=== PATIENT | male | born 1960 | race Caucasian/White ===

== ENCOUNTER 2019-10-13 14:44 | Inpatient (IN) ==
[2019-10-13] MEDS ORDERED: IOPAMIDOL 150 ML BOTTLE IV ONE (14:45)
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
[2019-10-13] MEDS ORDERED: PIPERACILLIN SODIUM/TAZOBACTAM 3.375 GM in DEXTROSE 5% IN WATER 50 ML IV SCH ×2 (16:15→18:30)
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
[2019-10-13 19:21] LABS: Basophils # (Auto) 0.05 K/mcL (0.00-0.30); Basophils % (Auto) 0.8 % (0.0-2.0); Eosinophils # (Auto) 0.27 K/mcL (0.00-0.70); Eosinophils % (Auto) 4.5 % (0.0-7.0); Granulocytes % (Auto) 61.1 % (38.0-78.0); Hematocrit 35.7 % (40.1-51.0); Hemoglobin 11.6 g/dL (13.7-17.5); Lymphocytes # (Auto) 1.24 K/mcL (1.50-4.80); Lymphocytes % (Auto) 20.5 % (15.5-49.0); Mean Cell Volume 90.8 fL (80.0-100.0); Mean Corpuscular HGB Conc 32.5 g/dL (31.0-36.0); Mean Platelet Volume 10.5 fL (7.4-10.4); Monocytes # (Auto) 0.79 K/mcL (0.10-0.90); Monocytes % (Auto) 13.1 % (1.0-12.0); Platelet Count 361 K/mcL (140-440); RBC 3.93 M/mcL (4.63-6.08); Red Cell Distribution Width 13.1 % (11.5-14.5); WBC 6.1 K/mcL (4.50-11.00)
[2019-10-13] MEDS ORDERED: POTASSIUM CHLORIDE 20 MEQ PACKET PO PRN (19:22)
[2019-10-13] MEDS ORDERED: MAGNESIUM SULFATE 2 GM/50 ML BAG IV PRN (19:22)
[2019-10-13] MEDS ORDERED: BISACODYL 10 MG SUPP.RECT PR PRN (19:22)
[2019-10-13] MEDS ORDERED: ACETAMINOPHEN 325 MG TABLET PO PRN (19:22)
[2019-10-13] MEDS ORDERED: POLYETHYLENE GLYCOL 3350 17 GM PACKET PO PRN (19:22)
[2019-10-13] MEDS ORDERED: ONDANSETRON 4 MG ODT TABLET SL PRN (19:22)
[2019-10-13] MEDS ORDERED: ACETAMINOPHEN 650 MG/65 ML BOTTLE IV PRN (19:22)
[2019-10-13] MEDS ORDERED: guaiFENesin/CODEINE 10 ML UDC PO PRN (19:22)
[2019-10-13] MEDS ORDERED: ONDANSETRON 4 MG/2 ML VIAL IV PRN (19:22)
[2019-10-13 19:39] LABS: C-Reactive Protein 7.3 mg/dl (0.0-0.8)
[2019-10-13 20:26] LABS: POC Blood Urea Nitrogen 14 mg/dl (6-20); POC CO2 26 mmol/L (22-30); POC Calcium, Ionized 1.26 mmol/L (1.16-1.32); POC Chloride 100 mmol/L (96-108); POC Creatinine 0.9 mg/dl (0.7-1.2); POC Glucose, Random 110 mg/dL (70-105); POC Potassium 4.3 mmol/L (3.3-5.1); POC Sodium 135 mmol/L (133-145)
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
[2019-10-13] MEDS ORDERED: MELATONIN 3 MG TABLET PO PRN (21:00)
[2019-10-13] MEDS: HYDROmorphone 0.5 MG/0.5 ML SYRINGE IV PRN (21:20)
[2019-10-13] MEDS: HEPARIN 5,000 UNIT/ML VIAL SQ SCH (21:21)
[2019-10-13] MEDS: 0.9 % SODIUM CHLORIDE 10 ML SYRINGE IV SCH (21:21)
[2019-10-13] MEDS: SENNOSIDES/DOCUSATE SODIUM 1 TAB TABLET PO SCH ×2 (21:21→21:30)
[2019-10-13] MEDS: DOCUSATE SODIUM 100 MG CAPSULE PO SCH ×2 (21:21→21:30)
[2019-10-13 23:29] LABS: Appearance,Urine CLEAR; Bilirubin,Urine NEG (NEG); Color,Urine YELLOW; Culture Indicated,Urine NO; Glucose,Urine (UA) NEGATIVE (NEG); Ketones,Urine NEG (NEG); Leukocyte Esterase,Urine NEG /uL (NEG); Nitrate,Urine NEG (NEG); Protein,Urine NEG (NEG); Specific Gravity,Urine 1.025 (1.000-1.035); Urine Blood NEG mg/dL (<0.03)
[2019-10-13] MEDS: PIPERACILLIN SODIUM/TAZOBACTAM 3.375 GM in DEXTROSE 5% IN WATER 50 ML IV SCH (23:59)
[2019-10-14] MEDS: HYDROmorphone 0.5 MG/0.5 ML SYRINGE IV PRN ×3 (03:10→16:07)
[2019-10-14] MEDS: 0.9 % SODIUM CHLORIDE 10 ML SYRINGE IV SCH ×3 (03:10→12:24)
[2019-10-14] MEDS: PIPERACILLIN SODIUM/TAZOBACTAM 3.375 GM in DEXTROSE 5% IN WATER 50 ML IV SCH ×4 (05:50→23:49)
[2019-10-14 06:46] LABS: Hematocrit 31.8 % (40.1-51.0); Hemoglobin 10.3 g/dL (13.7-17.5); Mean Cell Volume 90.9 fL (80.0-100.0); Mean Corpuscular HGB Conc 32.4 g/dL (31.0-36.0); Mean Platelet Volume 10.4 fL (7.4-10.4); Platelet Count 327 K/mcL (140-440); Red Cell Distribution Width 13.1 % (11.5-14.5); WBC 6.1 K/mcL (4.50-11.00)
[2019-10-14 07:03] LABS: ALT/SGPT 13 U/l (0-40); AST/SGOT 12 U/l (0-37); Albumin 3.2 gm/dL (3.2-5.2); Albumin/Globulin Ratio 1.1 (1.0-2.3); Alkaline Phosphatase 102 U/L (39-117); Bilirubin,Direct < 0.2 mg/dL (0.0-0.3); Bilirubin,Total 0.4 mg/dL (0.0-1.0); Blood Urea Nitrogen 12 mg/dl (6-20); Calcium 9.3 mg/dl (8.6-10.4); Carbon Dioxide 25 mmol/L (22-30); Chloride 100 mmol/L (96-108); Globulin 2.8 gm/dL (2.2-3.7); Glomerular Filtration Rate 97; Glucose 85 mg/dL (70-105); Lactate Dehydrogenase 201 U/L (94-250); Triglycerides 62 mg/dl (<150); Uric Acid 3.4 mg/dL (2.5-8.0)
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
[2019-10-14 08:38] LABS: Eosinophils % (Manual) 3 % (0-7); Lymphocytes % 17 % (15-49); Monocytes % (Manual) 11 % (1-12); Platelet Estimate NORMAL (NORMAL); RBC Morphology NORMAL (NORMAL); Segmented Neutrophils % 69 % (38-78)
[2019-10-14] MEDS ORDERED: LISINOPRIL 10 MG TABLET PO SCH (09:00)
[2019-10-14] MEDS ORDERED: MULTIVIT,THER IRON,CA,FA & MIN 1 TABLET PO SCH (09:00)
[2019-10-14] MEDS ORDERED: SCOPOLAMINE 1 PATCH PATCH TOPICAL PRN ×2 (12:00→15:39)
[2019-10-14] MEDS ORDERED: IPRATROPIUM/ALBUTEROL 3 ML AMPUL.NEB NEB PRN ×3 (12:00→15:39)
[2019-10-14] MEDS ORDERED: NALOXONE HCL 0.4 MG/ML VIAL IV PRN (13:34)
[2019-10-14] MEDS ORDERED: PROMETHAZINE 25 MG/ML VIAL IV PRN (13:34)
[2019-10-14] MEDS ORDERED: HYDROmorphone 0.5 MG/0.5 ML SYRINGE IV PRN (13:34)
[2019-10-14] MEDS ORDERED: MEPERIDINE 25 MG/ML SYRINGE IV PRN (13:34)
[2019-10-14] MEDS ORDERED: BENZOCAINE/MENTHOL 1 LOZENGE PO PRN (13:34)
[2019-10-14] MEDS ORDERED: ONDANSETRON 4 MG/2 ML VIAL IV PRN ×2 (13:34→15:39)
[2019-10-14] MEDS ORDERED: diphenhydrAMINE 50 MG/ML VIAL IV PRN (13:34)
[2019-10-14] MEDS ORDERED: LACTATED RINGERS 250 ML IV PRN (13:34)
[2019-10-14] MEDS ORDERED: ACETAMINOPHEN 1,000 MG/100 ML BOTTLE IV ONE (13:34)
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
--- NOTE | 2019-10-14 13:42 | XRay Report ---
CLINICAL INFORMATION: Pre operative COMPARISON: None. FINDINGS: Heart is mildly enlarged. Mediastinum and pulmonary vessels are normal. Lungs are clear. No effusions. Bones and soft tissues normal. IMPRESSION: Mild cardiomegaly - no acute disease Interpreted and Authenticated by: Austen Owen 10/14/19
[2019-10-14] MEDS ORDERED: LACTATED RINGERS 1,000 ML IV SCH (13:45)
[2019-10-14] MEDS ORDERED: PROPOFOL 200 MG/20 ML VIAL IV ONE (13:50)
[2019-10-14] MEDS ORDERED: LIDOCAINE HCL/PF 100 MG/5 ML SYRINGE IV ONE (13:50)
[2019-10-14] MEDS ORDERED: KETAMINE 100 MG/ML ML IV ONE (13:50)
[2019-10-14] MEDS ORDERED: ONDANSETRON 4 MG/2 ML VIAL IV ONE (13:50)
[2019-10-14] MEDS ORDERED: DEXAMETHASONE 10 MG/ML VIAL IV ONE (13:50)
--- NOTE | 2019-10-14 14:48 | Brief Operative Note ---
Date of procedure: 10/14/19 Pre-op diagnosis: Infected hematoma RIGHT thigh with abscess Post-op diagnosis: same Procedure: Excision debridement, Pulse lavage irrigation, cultures / biopsies and OPEN packing. Wound Dimensions: PRE op 6 x 4 x 3.5 CM POST op 9 x 7 x 4 CM Underminin Cm @ 9 O'clock 8 Cm @ 12 O'clock 3 Cm @ 3 O'clock 4 Cm @ 6 O'clock EBL 50 ml Grafts/Implants: No Anesthesia: GETA Findings: Infected hematoma, Fat necrosis, Bruised saphenous veins Wound base with tears in fascia and exposed muscle Complications: none Surgeon: Braulio Simpson Estimated blood loss (cc): 50 Specimens Removed/Pathology: other Condition: stable Disposition: other (Procedure well tolerated. Patient NEEDS staged proceedure/s Change of packing, possible VAC and skin grafting later.)
[2019-10-14] MEDS ORDERED: hydrALAZINE 20 MG/ML VIAL IV ONE (14:53)
[2019-10-14] MEDS: fentaNYL 100 MCG/2 ML VIAL IV PRN ×4 (14:55→15:12)
[2019-10-14] MEDS ORDERED: hydrALAZINE 20 MG/ML VIAL ONE (15:03)
[2019-10-14] MEDS ORDERED: GENTAMICIN SULFATE 800 MG/20 ML VIAL IR ONE (15:10)
[2019-10-14] MEDS ORDERED: ACETAMINOPHEN 325 MG TABLET PO PRN (15:39)
[2019-10-14] MEDS ORDERED: MAGNESIUM SULFATE 2 GM/50 ML BAG IV PRN (15:39)
[2019-10-14] MEDS ORDERED: ACETAMINOPHEN 650 MG/65 ML BOTTLE IV PRN (15:39)
[2019-10-14] MEDS ORDERED: BISACODYL 10 MG SUPP.RECT PR PRN (15:39)
[2019-10-14] MEDS ORDERED: ONDANSETRON 4 MG ODT TABLET SL PRN (15:39)
[2019-10-14] MEDS ORDERED: guaiFENesin/CODEINE 10 ML UDC PO PRN (15:39)
[2019-10-14] MEDS ORDERED: POLYETHYLENE GLYCOL 3350 17 GM PACKET PO PRN (15:39)
[2019-10-14] MEDS ORDERED: POTASSIUM CHLORIDE 20 MEQ PACKET PO PRN (15:39)
[2019-10-14] MEDS ORDERED: MEPERIDINE 25 MG/ML SYRINGE IV SCH (15:50)
[2019-10-14] MEDS: HEPARIN 5,000 UNIT/ML VIAL SQ SCH ×2 (16:41→21:01)
[2019-10-14] MEDS: DOCUSATE SODIUM 100 MG CAPSULE PO SCH (16:41)
[2019-10-14] MEDS: oxyCODONE/APAP 5/325MG TABLET PO PRN ×2 (17:09→21:01)
[2019-10-14] MEDS ORDERED: MELATONIN 3 MG TABLET PO PRN (21:00)
[2019-10-14] MEDS: SENNOSIDES/DOCUSATE SODIUM 1 TAB TABLET PO SCH (21:01)
[2019-10-15] MEDS: HYDROmorphone 0.5 MG/0.5 ML SYRINGE IV PRN ×3 (00:22→22:48)
[2019-10-15] MEDS: oxyCODONE/APAP 5/325MG TABLET PO PRN ×3 (03:49→20:06)
[2019-10-15] MEDS: PIPERACILLIN SODIUM/TAZOBACTAM 3.375 GM in DEXTROSE 5% IN WATER 50 ML IV SCH ×4 (05:39→23:39)
[2019-10-15 06:13] LABS: Hematocrit 33.3 % (40.1-51.0); Hemoglobin 10.7 g/dL (13.7-17.5); Mean Cell Volume 90.7 fL (80.0-100.0); Mean Corpuscular HGB Conc 32.1 g/dL (31.0-36.0); Mean Platelet Volume 10.3 fL (7.4-10.4); Platelet Count 357 K/mcL (140-440); RBC 3.67 M/mcL (4.63-6.08); Red Cell Distribution Width 12.9 % (11.5-14.5); WBC 8.9 K/mcL (4.50-11.00)
[2019-10-15 06:45] LABS: ALT/SGPT 22 U/l (0-40); AST/SGOT 18 U/l (0-37); Albumin 3.1 gm/dL (3.2-5.2); Alkaline Phosphatase 100 U/L (39-117); Bilirubin,Direct < 0.2 mg/dL (0.0-0.3); Bilirubin,Total 0.2 mg/dL (0.0-1.0); Blood Urea Nitrogen 12 mg/dl (6-20); Calcium 9.2 mg/dl (8.6-10.4); Carbon Dioxide 26 mmol/L (22-30); Chloride 102 mmol/L (96-108); Globulin 3.1 gm/dL (2.2-3.7); Glomerular Filtration Rate 93; Glucose 98 mg/dL (70-105); Lactate Dehydrogenase 208 U/L (94-250); Phosphorous 2.7 mg/dL (2.7-4.5); Triglycerides 62 mg/dl (<150); Uric Acid 2.8 mg/dL (2.5-8.0)
[2019-10-15 08:05] LABS: Lymphocytes % 15 % (15-49); Monocytes % (Manual) 7 % (1-12); Platelet Estimate NORMAL (NORMAL); RBC Morphology NORMAL (NORMAL); Segmented Neutrophils % 78 % (38-78)
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
[2019-10-15] MEDS ORDERED: LISINOPRIL 10 MG TABLET PO SCH (09:00)
[2019-10-15] MEDS: MULTIVIT,THER IRON,CA,FA & MIN 1 TABLET PO SCH (09:15)
[2019-10-15] MEDS: LISINOPRIL 20 MG TABLET PO SCH (09:15)
[2019-10-15] MEDS: HEPARIN 5,000 UNIT/ML VIAL SQ SCH ×2 (09:16→20:06)
[2019-10-15] MEDS: SENNOSIDES/DOCUSATE SODIUM 1 TAB TABLET PO SCH (20:06)
[2019-10-15] MEDS ORDERED: hydrALAZINE 20 MG/ML VIAL IV PRN (22:43)
[2019-10-15] MEDS ORDERED: hydrALAZINE 20 MG/ML VIAL ONE (22:49)
[2019-10-16] MEDS: oxyCODONE/APAP 5/325MG TABLET PO PRN ×6 (02:12→23:28)
[2019-10-16] MEDS: PIPERACILLIN SODIUM/TAZOBACTAM 3.375 GM in DEXTROSE 5% IN WATER 50 ML IV SCH (05:53)
[2019-10-16 06:34] LABS: Hematocrit 34.9 % (40.1-51.0); Hemoglobin 11.1 g/dL (13.7-17.5); Mean Cell Volume 91.8 fL (80.0-100.0); Mean Corpuscular HGB Conc 31.8 g/dL (31.0-36.0); Platelet Count 361 K/mcL (140-440); Red Cell Distribution Width 13.2 % (11.5-14.5); WBC 8.4 K/mcL (4.50-11.00)
[2019-10-16 07:06] LABS: ALT/SGPT 26 U/l (0-40); AST/SGOT 23 U/l (0-37); Albumin 3.2 gm/dL (3.2-5.2); Albumin/Globulin Ratio 1.1 (1.0-2.3); Alkaline Phosphatase 99 U/L (39-117); Bilirubin,Direct < 0.2 mg/dL (0.0-0.3); Bilirubin,Total 0.2 mg/dL (0.0-1.0); Blood Urea Nitrogen 13 mg/dl (6-20); Calcium 9.3 mg/dl (8.6-10.4); Carbon Dioxide 26 mmol/L (22-30); Chloride 101 mmol/L (96-108); Globulin 2.9 gm/dL (2.2-3.7); Glomerular Filtration Rate 93; Glucose 80 mg/dL (70-105); Lactate Dehydrogenase 218 U/L (94-250); Phosphorous 2.8 mg/dL (2.7-4.5); Triglycerides 106 mg/dl (<150); Uric Acid 2.9 mg/dL (2.5-8.0)
[2019-10-16 08:05] LABS: Eosinophils % (Manual) 3 % (0-7); Lymphocytes % 22 % (15-49); Monocytes % (Manual) 10 % (1-12); Platelet Estimate NORMAL (NORMAL); RBC Morphology NORMAL (NORMAL); Segmented Neutrophils % 65 % (38-78)
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
[2019-10-16] MEDS ORDERED: amLODIPine 5 MG TABLET PO ONE (08:36)
[2019-10-16] MEDS: LISINOPRIL 20 MG TABLET PO SCH (08:49)
[2019-10-16] MEDS: HEPARIN 5,000 UNIT/ML VIAL SQ SCH ×2 (08:50→20:07)
[2019-10-16] MEDS: MULTIVIT,THER IRON,CA,FA & MIN 1 TABLET PO SCH (08:50)
[2019-10-16] MEDS: HYDROmorphone 0.5 MG/0.5 ML SYRINGE IV PRN (08:51)
[2019-10-16] MEDS: amLODIPine 5 MG TABLET PO SCH (09:11)
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
[2019-10-16] MEDS: CEPHALEXIN 500 MG CAPSULE PO SCH ×3 (13:23→20:08)
--- NOTE | 2019-10-16 13:28 | General Surgery Progress Note ---
Subjective Patient reports: feels better, pain is less, tolerating a regular diet (Feeling better. Surgical site pain and oozing throu the outer layer of dressing. ), bowel movement, afebrile Narrative: Note initiated : 10/16/19 at 1:24 pm Service Date, if different from initiated Date: [] Patient: Jerome Marquez 58 y/o M admitted on 10/13/19 for Right thigh wound. Chief Complaint: [] Objective Temp Pulse Resp BP Pulse Ox 98.5 F 77 20 154/99 97 10/16/19 11:28 10/16/19 11:28 10/16/19 11:28 10/16/19 11:28 10/16/19 11:28 - Additional Data Intake & Output - Last 24 hours: Intake & Output 10/14/19 10/15/19 10/16/19 10/17/19 05:59 05:59 05:59 05:59 Intake Total 790 3110 2250 1230 Output Total 825 3225 3350 1999 Balance -35 -115 -1100 -770 Weight 264 lb 4.8 oz 257 lb 11.2 oz 260 lb 3.2 oz 260 lb 3.2 oz 10/16/19 13:25 POD # 2 AVSS No changes MADY. Ambulating to bathroom. Still has surgical site pain. Blood staining of dressing . Eating well. LESLIE. Wound c/s Staph aureus. ID consult appreciated. Dressing changed. Packing D/Cd. Started wound VAC. - Labs 10/16/19 05:20 10/16/19 05:20 Diabetes panel 10/16/19 Range/Units 05:20 Sodium 138 (133-145) mmol/L Potassium 4.0 (3.3-5.1) mmol/L Chloride 101 (96-108) mmol/L Carbon Dioxide 26 (22-30) mmol/L BUN 13 (6-20) mg/dl Creatinine 0.9 (0.7-1.2) mg/dl Glucose 80 (70-105) mg/dL Calcium 9.3 (8.6-10.4) mg/dl AST 23 (0-37) U/l ALT 26 (0-40) U/l Alkaline Phosphatase 99 (39-117) U/L Total Protein 6.1 (5.9-8.4) gm/dL Albumin 3.2 (3.2-5.2) gm/dL Triglycerides 106 (<150) mg/dl Calcium panel 10/16/19 Range/Units 05:20 Calcium 9.3 (8.6-10.4) mg/dl Phosphorus 2.8 (2.7-4.5) mg/dL Albumin 3.2 (3.2-5.2) gm/dL Pituitary panel 10/16/19 Range/Units 05:20 Sodium 138 (133-145) mmol/L Potassium 4.0 (3.3-5.1) mmol/L Chloride 101 (96-108) mmol/L Carbon Dioxide 26 (22-30) mmol/L BUN 13 (6-20) mg/dl Creatinine 0.9 (0.7-1.2) mg/dl Glucose 80 (70-105) mg/dL Calcium 9.3 (8.6-10.4) mg/dl Adrenal panel 10/16/19 Range/Units 05:20 Sodium 138 (133-145) mmol/L Potassium 4.0 (3.3-5.1) mmol/L Chloride 101 (96-108) mmol/L Carbon Dioxide 26 (22-30) mmol/L BUN 13 (6-20) mg/dl Creatinine 0.9 (0.7-1.2) mg/dl Glucose 80 (70-105) mg/dL Calcium 9.3 (8.6-10.4) mg/dl Total Bilirubin 0.2 (0.0-1.0) mg/dL AST 23 (0-37) U/l ALT 26 (0-40) U/l Alkaline Phosphatase 99 (39-117) U/L Total Protein 6.1 (5.9-8.4) gm/dL Albumin 3.2 (3.2-5.2) gm/dL Assessment and Plan (1) Traumatic hematoma of right thigh Status: Acute Current Visit: Yes (2) Abscess of right thigh Status: Acute Current Visit: Yes (3) Hypertension, essential Status: Chronic Current Visit: No (4) Obesity (BMI 30.0-34.9) Status: Chronic Current Visit: No (5) Cigarette smoker Status: Chronic Current Visit: No - Narrative A/P Narrative: Assessment: Patient seen with Daniela MONTOYA, Wound nurse. He WILL need close monitoring, Wound VAC FURTHER SURGICAL INTERVENTION. IE.debridement and / or split thick skin graft Plan: Reassess progress. For now continue wound VAC. Physical Therapy consult. CASE management to assist with further treatment, NEEDS: Further wound management and surgery. This will be evaluated as condition evolves. Post Skin Graft, ??? HBOT . - Time Spent With Patient Total time spent is greater than 50% in coordination of care (as documented) at patient's floor/unit and/or counseling patient: 25 - 35 minutes
[2019-10-16] MEDS: SENNOSIDES/DOCUSATE SODIUM 1 TAB TABLET PO SCH (20:08)
[2019-10-17] MEDS: oxyCODONE/APAP 5/325MG TABLET PO PRN ×5 (04:08→20:58)
[2019-10-17 06:32] LABS: Hemoglobin 11.7 g/dL (13.7-17.5); Mean Cell Volume 90.9 fL (80.0-100.0); Mean Corpuscular HGB Conc 31.6 g/dL (31.0-36.0); Mean Platelet Volume 9.9 fL (7.4-10.4); Platelet Count 365 K/mcL (140-440); RBC 4.07 M/mcL (4.63-6.08); Red Cell Distribution Width 13.3 % (11.5-14.5); WBC 6.7 K/mcL (4.50-11.00)
[2019-10-17 07:00] LABS: ALT/SGPT 33 U/l (0-40); AST/SGOT 28 U/l (0-37); Albumin 3.4 gm/dL (3.2-5.2); Albumin/Globulin Ratio 1.2 (1.0-2.3); Alkaline Phosphatase 95 U/L (39-117); Bilirubin,Direct < 0.2 mg/dL (0.0-0.3); Bilirubin,Total 0.2 mg/dL (0.0-1.0); Blood Urea Nitrogen 14 mg/dl (6-20); Calcium 9.4 mg/dl (8.6-10.4); Carbon Dioxide 25 mmol/L (22-30); Chloride 102 mmol/L (96-108); Globulin 2.8 gm/dL (2.2-3.7); Glomerular Filtration Rate 97; Glucose 84 mg/dL (70-105); Lactate Dehydrogenase 180 U/L (94-250); Phosphorous 3.5 mg/dL (2.7-4.5); Triglycerides 126 mg/dl (<150); Uric Acid 3.4 mg/dL (2.5-8.0)
[2019-10-17 07:41] LABS: Eosinophils % (Manual) 7 % (0-7); Lymphocytes % 31 % (15-49); Monocytes % (Manual) 6 % (1-12); Platelet Estimate NORMAL (NORMAL); RBC Morphology NORMAL (NORMAL); Segmented Neutrophils % 56 % (38-78)
[2019-10-17] MEDS: CEPHALEXIN 500 MG CAPSULE PO SCH ×4 (08:37→20:58)
[2019-10-17] MEDS: amLODIPine 5 MG TABLET PO SCH (08:38)
[2019-10-17] MEDS: LISINOPRIL 20 MG TABLET PO SCH (08:38)
[2019-10-17] MEDS: MULTIVIT,THER IRON,CA,FA & MIN 1 TABLET PO SCH (08:39)
[2019-10-17] MEDS: HEPARIN 5,000 UNIT/ML VIAL SQ SCH ×2 (08:39→20:57)
--- NOTE | 2019-10-17 09:08 | General Surgery Progress Note ---
Subjective Patient reports: no new complaints, feels better, tolerating a regular diet, bowel movement, other (Ambulating ad azar. Serous drainge in cannister VAC. ) Narrative: Note initiated : 10/17/19 at 8:47 am Service Date, if different from initiated Date: [] Patient: Jerome Marquez 58 y/o M admitted on 10/13/19 for Right thigh wound. Chief Complaint: [] Objective Temp Pulse Resp BP Pulse Ox 97.6 F 62 18 169/94 98 10/17/19 07:39 10/17/19 07:39 10/17/19 07:39 10/17/19 07:39 10/17/19 07:39 AVSS No changes RIGHT thigh Wound VAC Functioning well. Labs reviewed. I D Note appreciated. - Additional Data Intake & Output - Last 24 hours: Intake & Output 10/15/19 10/16/19 10/17/19 10/18/19 05:59 05:59 05:59 05:59 Intake Total 3110 2250 3710 480 Output Total 3225 3350 5625 300 Balance -115 -1100 -1915 180 Weight 257 lb 11.2 oz 260 lb 3.2 oz 253 lb 8 oz - Labs 10/17/19 05:18 10/17/19 05:18 Diabetes panel 10/17/19 Range/Units 05:18 Sodium 137 (133-145) mmol/L Potassium 4.2 (3.3-5.1) mmol/L Chloride 102 (96-108) mmol/L Carbon Dioxide 25 (22-30) mmol/L BUN 14 (6-20) mg/dl Creatinine 0.8 (0.7-1.2) mg/dl Glucose 84 (70-105) mg/dL Calcium 9.4 (8.6-10.4) mg/dl AST 28 (0-37) U/l ALT 33 (0-40) U/l Alkaline Phosphatase 95 (39-117) U/L Total Protein 6.2 (5.9-8.4) gm/dL Albumin 3.4 (3.2-5.2) gm/dL Triglycerides 126 (<150) mg/dl Calcium panel 10/17/19 Range/Units 05:18 Calcium 9.4 (8.6-10.4) mg/dl Phosphorus 3.5 (2.7-4.5) mg/dL Albumin 3.4 (3.2-5.2) gm/dL Pituitary panel 10/17/19 Range/Units 05:18 Sodium 137 (133-145) mmol/L Potassium 4.2 (3.3-5.1) mmol/L Chloride 102 (96-108) mmol/L Carbon Dioxide 25 (22-30) mmol/L BUN 14 (6-20) mg/dl Creatinine 0.8 (0.7-1.2) mg/dl Glucose 84 (70-105) mg/dL Calcium 9.4 (8.6-10.4) mg/dl Adrenal panel 10/17/19 Range/Units 05:18 Sodium 137 (133-145) mmol/L Potassium 4.2 (3.3-5.1) mmol/L Chloride 102 (96-108) mmol/L Carbon Dioxide 25 (22-30) mmol/L BUN 14 (6-20) mg/dl Creatinine 0.8 (0.7-1.2) mg/dl Glucose 84 (70-105) mg/dL Calcium 9.4 (8.6-10.4) mg/dl Total Bilirubin 0.2 (0.0-1.0) mg/dL AST 28 (0-37) U/l ALT 33 (0-40) U/l Alkaline Phosphatase 95 (39-117) U/L Total Protein 6.2 (5.9-8.4) gm/dL Albumin 3.4 (3.2-5.2) gm/dL Assessment and Plan (1) Traumatic hematoma of right thigh Status: Acute Current Visit: Yes (2) Abscess of right thigh Status: Acute Current Visit: Yes (3) Hypertension, essential Status: Chronic Current Visit: No (4) Obesity (BMI 30.0-34.9) Status: Chronic Current Visit: No (5) Cigarette smoker Status: Chronic Current Visit: No - Narrative A/P Narrative: Assessment: Satisfactory post operative progress . POD # 3. Patient is speaking with his son in [facility]. He would like to move to [facility] for further treatment. Plan: Await developments. Continue present treatment. - Time Spent With Patient Total time spent is greater than 50% in coordination of care (as documented) at patient's floor/unit and/or counseling patient: 15 - 24 minutes
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
--- NOTE | 2019-10-17 15:18 | Surgical Pathology Report ---
HISTOLOGY SPECIMEN MICROSCOPIC DIAGNOSIS SKIN AND SOFT TISSUE, RIGHT THIGH WOUND ABSCESS, BIOPSY: -- DERMAL AND SUBCUTANEOUS ABSCESS WITH FAT NECROSIS, GRANULATION TISSUE, FIBROSIS, HEMORRHAGE AND EPIDERMAL ULCERATION/NECROSIS. -- NO NEOPLASIA OR MALIGNANCY IDENTIFIED. (ACP:sln) MICROSCOPIC DESCRIPTION Sections of the right thigh demonstrate a broad region of epidermal necrosis/ulceration with dense mixed inflammation, extensive granulation tissue, irregular fibrosis and fat necrosis. Irregular fibrosis and fibroplasia are also present. No polarizable foreign material is identified. Scattered multinucleated giant cells are present. No acid-fast bacilli or fungal organisms are identified with AFB or GMS stains (adequate technical controls). Immunohistochemical stains are performed on block A3, including pancytokeration plus, S100, Melan A, CD68 and CD34 (adequate technical controls). The pancytokeratin plus highlights adnexal structures at the dermis. The CD34 is positive within granulation tissue endothelial cells. The S100 highlights rare peripheral nerves. The Melan A is positive within rare epidermal melanocytes. The CD68 is positive within numerous histiocytes associated with fat necrosis. There is no evidence of neoplasia or malignancy. (ACP:sln) Some of the tests reported here may not have been cleared or approved by the U.S. Food and Drug Administration (FDA). However, the FDA has determined that such clearance or approval is not necessary. Pursuant to the requirements of CLIA, this laboratory has established and verified the accuracy and precision of all tests, and additional information about these tests is available upon request. All technical controls are adequate. CLINICAL HISTORY Nonhealing right thigh wound. GROSS DESCRIPTION Received in formalin labeled right thigh wound abscess, are two fragments of yellow-valdez to brown lobulated soft tissue with an aggregate weight of 45 grams and measuring 6.5 x 5 x 2.3 cm and 7.4 x 5 x 1.3 cm. The fragments are not oriented. Skin is identified on the smaller fragment. The skin surface is white-valdez with ulcerated foci. The ulcerated foci measures 2.3 x 1.2 cm. Warehouse [employer] sections submitted: A1-A2 - sections of larger fragment; A3 - sections of smaller fragment to include skin. (EBD:sln) Electronically Signed by: Hemal Colon M.D.
[2019-10-17] MEDS: SENNOSIDES/DOCUSATE SODIUM 1 TAB TABLET PO SCH (20:58)
[2019-10-18] MEDS: oxyCODONE/APAP 5/325MG TABLET PO PRN ×3 (00:54→09:59)
[2019-10-18 06:22] LABS: Hematocrit 37.2 % (40.1-51.0); Mean Cell Volume 89.6 fL (80.0-100.0); Mean Corpuscular HGB Conc 32.3 g/dL (31.0-36.0); Mean Platelet Volume 9.8 fL (7.4-10.4); Platelet Count 397 K/mcL (140-440); RBC 4.15 M/mcL (4.63-6.08); Red Cell Distribution Width 13.2 % (11.5-14.5); WBC 7.2 K/mcL (4.50-11.00)
[2019-10-18 06:42] LABS: ALT/SGPT 90 U/l (0-40); AST/SGOT 78 U/l (0-37); Albumin 3.4 gm/dL (3.2-5.2); Albumin/Globulin Ratio 1.1 (1.0-2.3); Alkaline Phosphatase 99 U/L (39-117); Bilirubin,Direct < 0.2 mg/dL (0.0-0.3); Bilirubin,Total 0.2 mg/dL (0.0-1.0); Blood Urea Nitrogen 11 mg/dl (6-20); Calcium 9.5 mg/dl (8.6-10.4); Carbon Dioxide 26 mmol/L (22-30); Chloride 100 mmol/L (96-108); Glomerular Filtration Rate 97; Glucose 80 mg/dL (70-105); Lactate Dehydrogenase 213 U/L (94-250); Phosphorous 3.3 mg/dL (2.7-4.5); Triglycerides 144 mg/dl (<150); Uric Acid 4.1 mg/dL (2.5-8.0)
[2019-10-18 08:14] LABS: Eosinophils % (Manual) 6 % (0-7); Lymphocytes % 32 % (15-49); Monocytes % (Manual) 13 % (1-12); Platelet Estimate NORMAL (NORMAL); RBC Morphology NORMAL (NORMAL); Segmented Neutrophils % 49 % (38-78)
[2019-10-18] MEDS: amLODIPine 5 MG TABLET PO SCH (08:53)
[2019-10-18] MEDS: LISINOPRIL 20 MG TABLET PO SCH (08:53)
[2019-10-18] MEDS: CEPHALEXIN 500 MG CAPSULE PO SCH (08:53)
[2019-10-18] MEDS: MULTIVIT,THER IRON,CA,FA & MIN 1 TABLET PO SCH (08:53)
[2019-10-18] MEDS: HEPARIN 5,000 UNIT/ML VIAL SQ SCH (08:53)
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
--- NOTE | 2019-10-18 10:27 | Infectious Disease Prog Note ---
Subjective Patient information: Note initiated : 10/18/19 at 10:24 am Service Date, if different from initiated Date: [] Patient: Jerome Marquez 58 y/o M admitted on 10/13/19 for Right thigh wound. Chief Complaint: [] Interval history: Pt feels better. Denied any symptoms except for pain in the right thigh wound. Is getting ready for discharge and transfer to [facility] wound care per Dr Simpson. Objective Objective Narrative: ao x 3, in nad no thrush in oral cavity right thigh: has an approximate 8 x 5 cm ulcer at site of surgical debridement, base containing red granulation tissue with no yellow or white exudate, tender. Redness and swelling around the wound have been decreasing in size. single about 2cm x 3-4 mm blister seen adjacent to distal edge of the wound, without any surrounding erythema. no distal foot discoloration or edema - Vital Signs Vital signs: Vital Signs Temp Pulse Resp BP Pulse Ox 10/18/19 07:59 36.7 C 62 20 143/92 98 10/18/19 03:37 36.3 C 61 16 149/95 97 10/17/19 22:31 36.4 C 61 16 165/99 98 10/17/19 18:44 36.5 C 69 16 154/96 97 10/17/19 16:00 36.4 C 78 18 152/95 98 10/17/19 12:00 36.9 C 70 18 140/88 97 Intake and Output 10/17/19 10/18/19 10/18/19 21:59 05:59 13:59 Intake Total 480 1050 Output Total 1450 800 Balance -970 250 Intake: Oral 480 1050 Output: Void Amount 1450 800 Other: Urine Appearance Clear Clear Urine Color Bright Yellow Bright Yellow Urine Odor Normal Weight 114.759 kg Intake & Output: Intake & Output 10/17/19 10/18/19 10/18/19 21:59 05:59 13:59 Intake Total 480 1050 Output Total 1450 800 Balance -970 250 Weight 114.759 kg Intake: Oral 480 1050 Output: Void Amount 1450 800 Other: Urine Appearance Clear Clear Urine Color Bright Yellow Bright Yellow Urine Odor Normal - Lab 10/18/19 05:04 10/18/19 05:04 Most recent lab results Calcium 9.5 mg/dl (8.6-10.4) 10/18/19 05:04 Phosphorus 3.3 mg/dL (2.7-4.5) 10/18/19 05:04 Magnesium 2.3 mg/dL (1.6-2.5) 10/18/19 05:04 Microbiology 10/14/19 15:03 Thigh - Right Gram Stain - Final 10/14/19 15:03 Thigh - Right Anaerobic Culture - Preliminary 10/14/19 15:02 Thigh - Right Gram Stain - Final 10/14/19 15:02 Thigh - Right Anaerobic Culture - Preliminary 10/14/19 15:02 Thigh - Right Gram Stain - Final 10/14/19 15:02 Thigh - Right Wound Culture - Final Staphylococcus aureus 10/14/19 15:02 Thigh - Right Gram Stain - Final 10/14/19 15:02 Thigh - Right Wound Culture - Final Staphylococcus aureus 10/13/19 21:45 Nose MRSA Screen - Final 10/14/19 00:25 Nose MRSA (PCR) - Final Medications Active Medications: Acetaminophen (Tylenol) 650 mg PO Q4-6HP PRN; Protocol PRN Reason: Per Pain Protocol/Fever > 101 Last Admin: 10/15/19 15:55 Dose: 650 mg Documented by: BORIS Amlodipine Besylate (Norvasc) 5 mg PO DAILY [facility] Last Admin: 10/18/19 08:53 Dose: 5 mg Documented by: Admin: 10/17/19 08:38 Dose: 5 mg Documented by: Admin: 10/16/19 09:11 Dose: 5 mg Documented by: KEELEY Bisacodyl (Dulcolax) 10 mg VA Q2-3DAYS PRN PRN Reason: Constipation Cephalexin HCl (Keflex) 500 mg PO QID [facility]; Protocol Last Admin: 10/18/19 08:53 Dose: 500 mg Documented by: Admin: 10/17/19 20:58 Dose: 500 mg Documented by: Admin: 10/17/19 17:02 Dose: 500 mg Documented by: Admin: 10/17/19 12:26 Dose: 500 mg Documented by: Admin: 10/17/19 08:37 Dose: 500 mg Documented by: Admin: 10/16/19 20:08 Dose: 500 mg Documented by: Admin: 10/16/19 17:19 Dose: 500 mg Documented by: Admin: 10/16/19 13:23 Dose: 500 mg Documented by: KEELEY Guaifenesin/Codeine Phosphate (Robitussin Ac) 10 ml PO Q4HP PRN PRN Reason: Cough Heparin Sodium (Porcine) (Heparin) 5,000 unit SQ Q12 [facility] Last Admin: 10/18/19 08:53 Dose: 5,000 unit Documented by: Admin: 10/17/19 20:57 Dose: 5,000 unit Documented by: Admin: 10/17/19 08:39 Dose: 5,000 unit Documented by: Admin: 10/16/19 20:07 Dose: 5,000 unit Documented by: Admin: 10/16/19 08:50 Dose: 5,000 unit Documented by: Admin: 10/15/19 20:06 Dose: 5,000 unit Documented by: Admin: 10/15/19 09:16 Dose: 5,000 unit Documented by: Admin: 10/14/19 21:01 Dose: 5,000 unit Documented by: CALEB Hydralazine HCl (Apresoline) 10 - 20 mg IV Q4HP PRN PRN Reason: Hypertension Last Admin: 10/16/19 10:29 Dose: 10 mg Documented by: KEELEY Hydromorphone HCl (Dilaudid) 0 mg IV Q4HP PRN; Protocol PRN Reason: Per Pain Protocol Last Admin: 10/16/19 08:51 Dose: 0.5 mg Documented by: Admin: 10/15/19 22:48 Dose: 0.5 mg Documented by: Admin: 10/15/19 17:32 Dose: 0.5 mg Documented by: Admin: 10/15/19 00:22 Dose: 0.5 mg Documented by: Admin: 10/14/19 16:07 Dose: 0.5 mg Documented by: BOOKER Magnesium Sulfate (Magnesium Sulfate) 2 gm in 50 mls @ 50 mls/hr IV UD PRN PRN Reason: MG = or < 1.7 Acetaminophen (Ofirmev) 650 mg in 65 mls @ 130 mls/hr IV Q6HP PRN; Protocol PRN Reason: Per Pain Protocol/Fever > 101 Iron Carb/Multivit/Material Man/Folic Acid (Multivitamin W/Minerals) 1 tab PO DAILY [facility] Last Admin: 10/18/19 08:53 Dose: 1 tab Documented by: Admin: 10/17/19 08:39 Dose: 1 tab Documented by: Admin: 10/16/19 08:50 Dose: 1 tab Documented by: Admin: 10/15/19 09:15 Dose: 1 tab Documented by: BORIS Lisinopril (Zestril) 20 mg PO DAILY [facility] Last Admin: 10/18/19 08:53 Dose: 20 mg Documented by: Admin: 10/17/19 08:38 Dose: 20 mg Documented by: Admin: 10/16/19 08:49 Dose: 20 mg Documented by: Admin: 10/15/19 09:15 Dose: 20 mg Documented by: BORIS Melatonin (Melatonin 3mg Tablet) 3 mg PO HSP PRN PRN Reason: Insomnia Ondansetron HCl (Zofran Odt) 4 mg SL Q4-6HP PRN; Protocol PRN Reason: Nausea And Vomiting Ondansetron HCl (Zofran) 4 mg IV Q4-6HP PRN; Protocol PRN Reason: Nausea And Vomiting Oxycodone/Acetaminophen (Percocet 5-325 Mg) 1 - 2 tab PO Q4HP PRN; Protocol PRN Reason: Per Pain Protocol Last Admin: 10/18/19 09:59 Dose: 2 tab Documented by: Admin: 10/18/19 04:48 Dose: 2 tab Documented by: Admin: 10/18/19 00:54 Dose: 1 tab Documented by: Admin: 10/17/19 20:58 Dose: 1 tab Documented by: Admin: 10/17/19 17:01 Dose: 1 tab Documented by: Admin: 10/17/19 12:27 Dose: 1 tab Documented by: Admin: 10/17/19 08:37 Dose: 2 tab Documented by: Admin: 10/17/19 04:08 Dose: 1 tab Documented by: CALEB Comments: per patient request Admin: 10/16/19 23:28 Dose: 2 tab Documented by: Admin: 10/16/19 19:23 Dose: 1 tab Documented by: Admin: 10/16/19 14:48 Dose: 1 tab Documented by: Admin: 10/16/19 10:06 Dose: 1 tab Documented by: Admin: 10/16/19 06:46 Dose: 1 tab Documented by: Admin: 10/16/19 02:12 Dose: 2 tab Documented by: Admin: 10/15/19 20:06 Dose: 2 tab Documented by: Admin: 10/15/19 09:22 Dose: 2 tab Documented by: Admin: 10/15/19 03:49 Dose: 2 tab Documented by: Admin: 10/14/19 21:01 Dose: 2 tab Documented by: Admin: 10/14/19 17:09 Dose: 2 tab Documented by: AYOIDENEAsif Polyethylene Glycol (Miralax) 17 gm PO DAILYP PRN PRN Reason: Constipation Potassium Chloride (Klor-Con) 40 meq PO DAILYP PRN PRN Reason: K+ < 3.5 Senna/Docusate Sodium (Senna Plus Tablet) 1 tab PO HS [facility] Last Admin: 10/17/19 20:58 Dose: 1 tab Documented by: Admin: 10/16/19 20:08 Dose: 1 tab Documented by: Admin: 10/15/19 20:06 Dose: 1 tab Documented by: Admin: 10/14/19 21:01 Dose: 1 tab Documented by: CALEB Assessment and Plan - Narrative A/P Narrative: A: 1. Post-traumatic right thigh subcutaneous skin-soft tissue infection: seeding of post-traumatic hematoma by skin bacteria - CT right thigh on 10/12: 17 x 11 cm sail shaped thick-walled gas containing fluid collection in the deep subcutaneous soft tissues adjacent to the medial compartment of the thigh. It is suspicious for a abscess. NO osteomyelitis or myositis - s/p Excision debridement, Pulse lavage irrigation, cultures / biopsies and OPEN packing on 10/14/19, now with a wound vac Wound Dimensions: PRE op 6 x 4 x 3.5 CM POST op 9 x 7 x 4 CM - operative Cx growing MSSA - no systemic s/s, no sepsis - MRSA nasal pCR neg Recommendations: - Continue PO Cephalexin 500 mg qid with tentative stop date of 11/05/2019 - wound care per referral to [facility] and Dr Simpson - pt counseled to quit smoking - right leg and thigh elevation for helping reduce local edema - discussed side-effects of cephalexin. Also shared that if he notices yellow fluid filled blisters around his wound, to call us as it might be MRSA superinfection. Nicolas Medrano MD Infectious diseases
== END 2019-10-18 12:09 | disposition home or self-care (01) | DRG 571 ==
LOC: ED 14:44 → MEDSUR 19:05
PROVIDERS: ADMIT Internal Medicine; ATTEND Internal Medicine